=== PATIENT | female | born 2000 | race Two or more races ===

== ENCOUNTER 2024-12-16 00:07 | Inpatient (IN) | payer MEDICARE, OTHER ==
[~2024-12-16] VITALS: Ht 91.4 cm; Wt 40.0 kg
[2024-12-16 00:45] VITALS: BP 98/64; TEMP 98.5; O2SAT 100
[2024-12-16] MEDS ORDERED: MAGNESIUM HYDROXIDE 30 ML LIQUID UDC PO PRN (01:00)
[2024-12-16] MEDS: CEFTRIAXONE 1 G in IV DEXTROSE 5% 50 ML IV SCH ×2 (01:00→20:09)
[2024-12-16] MEDS ORDERED: ZOLPIDEM 5 MG TABLET PO PRN (01:00)
[2024-12-16] MEDS ORDERED: REMEDY ESSENTIAL ZINC PASTE 113 GM TP PRN (01:00)
[2024-12-16] MEDS ORDERED: CEFTRIAXONE /D5W 50ML IVPB **ER PYXIS IV ONE (01:18)
[2024-12-16 04:50] VITALS: BP 95/63; TEMP 97.8; O2SAT 99
[2024-12-16 07:02] LABS: BASOPHILS % (AUTO) 0.4 % (0.0-2.0); EOSINOPHILS # (AUTO) 0.1 K/uL (0.0-0.7); EOSINOPHILS % (AUTO) 0.5 % (0.0-7.0); HEMATOCRIT 37.1 % (31.2-41.9); HEMOGLOBIN 12.5 g/dL (10.9-14.3); LYMPHOCYTES # (AUTO) 1.6 K/uL (0.8-4.8); LYMPHOCYTES % (AUTO) 16.2 % (20.5-51.5); MEAN CORPUSCULAR HEMOGLOBIN 32.1 uug (24.7-32.8); MEAN CORPUSCULAR HGB CONC 34 g/dL (32.3-35.6); MEAN CORPUSCULAR VOLUME 95.7 fL (75.5-95.3); MONOCYTES % (AUTO) 9.9 % (0.0-11.0); NEUTROPHILS # (AUTO) 7.3 K/uL (1.8-8.9); PLATELET COUNT (AUTO) 265 K/uL (179-408); RED BLOOD CELL COUNT(AUTO) 3.88 MIL/uL (3.63-4.92); RED CELL DISTRIBUTION WIDTH 12.9 % (12.3-17.7)
[2024-12-16 07:10] LABS: DIFFERENTIAL COMMENT 1
[2024-12-16 07:18] LABS: ALANINE AMINOTRANSFERASE 10 U/L (14-59); ALBUMIN 2.8 g/dL (3.4-5.0); ALKALINE PHOSPHATASE 73 U/L (50-136); ASPARTATE AMINOTRANSFERASE 16 U/L (15-37); BILIRUBIN,TOTAL 0.3 mg/dL (0.2-1.0); CALCIUM 7.7 mg/dL (8.5-10.1); CARBON DIOXIDE 24 mmol/L (21-32); CHLORIDE 112 mmol/L (98-107); CREATININE 0.4 mg/dL (0.6-1.3); GLUCOSE 91 mg/dL (74-106); POTASSIUM 3.8 mmol/L (3.5-5.1); SODIUM SERUM 145 mmol/L (136-145); TOTAL PROTEIN, SERUM 5.5 g/dL (6.4-8.2); UREA NITROGEN, BLOOD 9 mg/dL (7-18)
[2024-12-16] MEDS ORDERED: no home meds (07:39)
[2024-12-16 08:00] VITALS: BP 104/60; TEMP 98.3; O2SAT 99
[2024-12-16 10:28] LABS: *BILIRUBIN,URIN NEGATIVE (NEGATIVE); *CLARITY,URINE CLEAR (CLEAR); *COLOR,URINE YELLOW (YELLOW); *KETONES,URINE NEGATIVE (NEGATIVE); *PROTEIN,URINE NEGATIVE (NEGATIVE); *UROBILINOGEN,URINE 0.2 E.U./dl (NORMAL); LEUKOCYTE ESTERASE ,URINE 1+ (NEGATIVE); NITRITE, URINE NEGATIVE (NEGATIVE); PH,URINE 6.5 (5.0-8.0); UGLUCOSE NEGATIVE (NEGATIVE)
[2024-12-16 10:42] LABS: *BLOOD, URINE TRACE (NEGATIVE)
[2024-12-16 10:43] LABS: BACTERIA,URINE FEW /HPF (NONE SEEN); SQUAMOUS EPITHELIAL CELL,UR FEW /HPF (NONE SEEN); WBC,URINE 20-50 /HPF (0-3)
[2024-12-16 11:00] VITALS: BP 105/63; TEMP 98.3; O2SAT 100
[2024-12-16] MEDS: ACETAMINOPHEN 325 MG TABLET PO PRN (12:13)
[2024-12-16] MEDS ORDERED: ROSU10TA29 PO (15:53)
[2024-12-16] MEDS ORDERED: DIFL5DRO RIGHTEYE (15:53)
[2024-12-16 16:16] VITALS: BP 97/58; TEMP 98.3; O2SAT 99
[2024-12-16] MEDS ORDERED: HOME MED MISCELLANEOUS RIGHTEYE PRN (17:45)
[2024-12-16 19:35] VITALS: BP 125/67; TEMP 98.8; O2SAT 97
[2024-12-16] MEDS: ONDANSETRON 4 MG/2 ML VIAL IV PRN (19:52)
[2024-12-16] MEDS: ATORVASTATIN 20 MG TABLET PO SCH (20:09)
[2024-12-16] MEDS: LORAZEPAM 1 MG TABLET PO PRN (23:44)
[2024-12-17 00:53] VITALS: BP 85/42; TEMP 98.7; O2SAT 99
[2024-12-17 04:23] VITALS: BP 92/48; TEMP 98.4; O2SAT 98
[2024-12-17 06:51] LABS: BASOPHILS % (AUTO) 0.5 % (0.0-2.0); EOSINOPHILS # (AUTO) 0.2 K/uL (0.0-0.7); EOSINOPHILS % (AUTO) 2.3 % (0.0-7.0); HEMATOCRIT 37.7 % (31.2-41.9); HEMOGLOBIN 12.5 g/dL (10.9-14.3); LYMPHOCYTES # (AUTO) 1.8 K/uL (0.8-4.8); LYMPHOCYTES % (AUTO) 25.5 % (20.5-51.5); MEAN CORPUSCULAR HEMOGLOBIN 31.6 uug (24.7-32.8); MEAN CORPUSCULAR HGB CONC 33 g/dL (32.3-35.6); MEAN CORPUSCULAR VOLUME 95.1 fL (75.5-95.3); MONOCYTES # (AUTO) 0.9 K/uL (0.1-1.30); MONOCYTES % (AUTO) 12.8 % (0.0-11.0); NEUTROPHILS # (AUTO) 4.2 K/uL (1.8-8.9); NEUTROPHILS % (AUTO) 58.9 % (38.5-71.5); PLATELET COUNT (AUTO) 282 K/uL (179-408); RED BLOOD CELL COUNT(AUTO) 3.96 MIL/uL (3.63-4.92); RED CELL DISTRIBUTION WIDTH 12.8 % (12.3-17.7); WHITE BLOOD COUNT (AUTO) 7.1 K/uL (3.8-11.8)
[2024-12-17 06:54] LABS: DIFFERENTIAL COMMENT 1
[2024-12-17 07:02] LABS: CALCIUM 8.6 mg/dL (8.5-10.1); CARBON DIOXIDE 25 mmol/L (21-32); CHLORIDE 110 mmol/L (98-107); CREATININE 0.3 mg/dL (0.6-1.3); GLUCOSE 86 mg/dL (74-106); PHOSPHOROUS 3.3 mg/dL (2.5-4.9); POTASSIUM 4.3 mmol/L (3.5-5.1); SODIUM SERUM 143 mmol/L (136-145); UREA NITROGEN, BLOOD 8 mg/dL (7-18)
[2024-12-17 07:18] VITALS: BP 113/65; TEMP 98; O2SAT 100
[2024-12-17] MEDS ORDERED: NITR100C11 PO (08:14)
[2024-12-17] MEDS: CEFTRIAXONE 1 G in IV DEXTROSE 5% 50 ML IV SCH (08:32)
[2024-12-17 10:58] VITALS: BP 106/77; TEMP 98.5; O2SAT 100
[2024-12-17] MEDS ORDERED: CEFTRIAXONE 1 G in IV DEXTROSE 5% 50 ML IV SCH (21:00)
== END 2024-12-17 11:25 | disposition home or self-care (01) | DRG 871 ==
LOC: MEDSURG3 00:24 → UNDOADMIN 00:24 → TELE3 00:24
PROVIDERS: ADMIT Student in an Organized Health Care Education/Training Program; ATTEND Internal Medicine
DX: A41.50 Gram-negative sepsis, unspecified (principal); R53.2 Functional quadriplegia; N39.0 Urinary tract infection, site not specified; Z99.3 Dependence on wheelchair; Q05.9 Spina bifida, unspecified; Z87.440 Personal history of urinary (tract) infections; I10 Essential (primary) hypertension; E78.5 Hyperlipidemia, unspecified
CPT/HCPCS: 36415; 83735; 84100; 85025; 87077; 87086; A4663; G0378; J0696; J2405